=== PATIENT | female | born 1950 | race Caucasian/White ===

== ENCOUNTER 2019-11-17 18:14 | Inpatient (IN) ==
[2019-11-17] MEDS ORDERED: MORPHINE 4 MG/1 ML VIAL IV PRN (20:38)
[2019-11-17] MEDS ORDERED: NITROGLYCERIN SL 0.4 MG TABLET SL PRN (20:38)
[2019-11-17] MEDS ORDERED: hydrALAZINE 20 MG/1 ML VIAL IV PRN (20:40)
[2019-11-17 21:47] LABS: Hemoglobin 14.4 GM/DL (12.0-16.0); Immature Granulocytes % 0.2 %; Immature Granulocytes Absolute 0.02 #; Red Cell Distribution Width 16.2 % (9.3-17.3)
[2019-11-17 21:56] LABS: PT Patient Result 10.7 SECS (9.6-12.2); Partial Thromboplastin Time 28.5 SECS (20.8-36.0)
[2019-11-17 22:06] LABS: Basophils # 0.1 10*3/uL (0.0-0.2); Basophils % 0.7 % (0.0-0.8); Eosinophils # 0.2 10*3/uL (0.0-0.87); Eosinophils % 2.6 % (0.00-10.9); Hematocrit 47.2 VOL% (35.7-47.0); Lymphocytes # 2.3 10*3/uL (1.4-4.0); Lymphocytes % 27.7 % (21.3-54.2); Mean Corpuscular HGB Conc 30.5 GM/DL (32-36); Mean Corpuscular Volume 92.4 FL (87-102); Mean Platelet Volume 11.3 FL (9.6-12.0); Monocytes % 7.3 % (1.7-12.7); Neutrophils % 61.5 % (38.7-73.9); Platelet Count 311 T/CUMM (130-400); Red Blood Count 5.11 MC/CUMM (3.8-5.5); White Blood Count 8.4 T/CUMM (4-12)
[2019-11-17] MEDS ORDERED: FUROSEMIDE 40 MG/4 ML VIAL IV SCH (22:30)
[2019-11-17 22:45] LABS: Calcium 9.8 MG/DL (8.5-10.1); Osmolality,Calculated 282.8 MOS/KG (273-304)
[2019-11-17] MEDS ORDERED: NICOTINE 21 MG/24 HR PATCH TRANSDERM PRN (23:33)
[2019-11-17] MEDS ORDERED: ACETAMINOPHEN 325 MG TABLET PO PRN (23:33)
[2019-11-17] MEDS ORDERED: guaiFENesin/DM ER 600-30 MG TABLET PO PRN (23:33)
[2019-11-17] MEDS ORDERED: ONDANSETRON 4 MG/2 ML VIAL IV PRN (23:33)
[2019-11-17] MEDS ORDERED: ALBUTEROL 2.5 MG/3 ML NEB RESP TX PRN (23:33)
[2019-11-17] MEDS ORDERED: DEXTROSE 50% 25 GM/50 ML VIAL IV ONE (23:36)
[2019-11-17] MEDS ORDERED: GLUCAGON 1 MG VIAL IM PRN (23:37)
[2019-11-17] MEDS ORDERED: DEXTROSE 50% 25 GM/50 ML VIAL IV PRN (23:37)
[2019-11-18] MEDS: ATORVASTATIN 40 MG TABLET PO SCH ×2 (03:36→21:53)
[2019-11-18 05:25] LABS: Basophils # 0.1 10*3/uL (0.0-0.2); Basophils % 0.7 % (0.0-0.8); Eosinophils # 0.2 10*3/uL (0.0-0.87); Eosinophils % 2.9 % (0.00-10.9); Hematocrit 42.7 VOL% (35.7-47.0); Hemoglobin 13.2 GM/DL (12.0-16.0); Immature Granulocytes % 0.1 %; Immature Granulocytes Absolute 0.01 #; Lymphocytes # 2.1 10*3/uL (1.4-4.0); Lymphocytes % 28.1 % (21.3-54.2); Mean Corpuscular HGB Conc 30.9 GM/DL (32-36); Mean Corpuscular Volume 91.8 FL (87-102); Mean Platelet Volume 11.5 FL (9.6-12.0); Monocytes % 9.5 % (1.7-12.7); Neutrophils % 58.7 % (38.7-73.9); Platelet Count 280 T/CUMM (130-400); Red Blood Count 4.65 MC/CUMM (3.8-5.5); Red Cell Distribution Width 16.4 % (9.3-17.3); White Blood Count 7.6 T/CUMM (4-12)
[2019-11-18 05:54] LABS: Albumin 3.4 G/DL (3.4-5.0); Bilirubin,Total 1.1 MG/DL (0.2-1.0); Calcium 9.9 MG/DL (8.5-10.1)
[2019-11-18] MEDS ORDERED: PANTOPRAZOLE 40 MG TABLET PO SCH (09:00)
[2019-11-18] MEDS: DOCUSATE SODIUM 100 MG CAPSULE PO SCH ×2 (09:14→21:53)
[2019-11-18] MEDS: carvediloL 6.25 MG TABLET PO SCH ×2 (09:15→16:35)
[2019-11-18] MEDS: ASPIRIN EC 325 MG TABLET PO SCH (09:17)
[2019-11-18 09:57] LABS: Apearance,Urine CLEAR (Clear); Bacteria,Urine Occasional /HPF (Few); Bilirubin,Urine Negative (Negative); Blood, Urine Negative (Negative); Glucose,Urine (UA) Negative (Negative); Hyaline Casts,Urine 11 /LPF (0-3); Ketones,Urine Negative (Negative); Nitrite,Urine Negative (Negative); Protein,Urine Negative; RBC,Urine 2 /HPF (0-4); Renal Epithelial Cells,Urine Occasional /HPF (<1); Squamous Epithelial Cell,Urine Occasional /HPF (0-10); Urine Color Straw (Yellow); Urine Specific Gravity 1.005 (1.001-1.035); Urine Urobilinogen < 2.0 EU/DL (0.2-1.0); WBC,Urine 6 /HPF (0-6)
[2019-11-18 10:20] LABS: Troponin I 0.072 NG/ML (0.00-0.045)
[2019-11-18] MEDS: BISACODYL 5 MG TABLET PO SCH (12:37)
[2019-11-18] MEDS ORDERED: MAGNESIUM HYDROXIDE SUSP 30 ML UDCUP PO ONE (16:28)
[2019-11-18] MEDS: INSULIN REGULAR 100 UNIT/ML SUBCUT SCH ×2 (17:41→21:53)
[2019-11-18] MEDS: INSULIN NPH/REGULAR 70/30 100 UNIT/ML SUBCUT SCH (21:53)
[2019-11-18] MEDS: TOBRAMYCIN/DEXAMETHASONE 0.3%-0.1% OPH SUSP 2.5 ML BOTTLE RIGHT EYE SCH (21:53)
[2019-11-19 04:56] LABS: Basophils # 0.1 10*3/uL (0.0-0.2); Basophils % 0.8 % (0.0-0.8); Eosinophils # 0.3 10*3/uL (0.0-0.87); Eosinophils % 3.4 % (0.00-10.9); Hematocrit 41.3 VOL% (35.7-47.0); Hemoglobin 12.5 GM/DL (12.0-16.0); Immature Granulocytes % 0.3 %; Immature Granulocytes Absolute 0.02 #; Lymphocytes # 1.9 10*3/uL (1.4-4.0); Lymphocytes % 25.6 % (21.3-54.2); Mean Corpuscular HGB Conc 30.3 GM/DL (32-36); Mean Platelet Volume 11.5 FL (9.6-12.0); Monocytes % 11.1 % (1.7-12.7); Neutrophils % 58.8 % (38.7-73.9); Platelet Count 294 T/CUMM (130-400); Red Blood Count 4.44 MC/CUMM (3.8-5.5); Red Cell Distribution Width 15.9 % (9.3-17.3); White Blood Count 7.3 T/CUMM (4-12)
[2019-11-19 05:46] LABS: Calcium 9.4 MG/DL (8.5-10.1); Osmolality,Calculated 281.1 MOS/KG (273-304)
[2019-11-19 06:14] LABS: Risk Ratio 6.33; VLDL CHOLESTEROL 43.6 MG/DL
[2019-11-19 08:52] LABS: ABG Base Excess 6.2 MMOL/L (-2.5-2.5); ABG Oxygen Saturation 96.4 % (95-100); ABG PCO2 57.7 MM HG (35-48); ABG PH 7.372 (7.35-7.45); ABG PO2 80.3 MM HG (80-95); ABG TCO2 29.3 MMOL/L (23-27)
[2019-11-19] MEDS ORDERED: FUROSEMIDE 40 MG TABLET PO SCH (09:00)
[2019-11-19] MEDS: INSULIN REGULAR 100 UNIT/ML SUBCUT SCH ×4 (09:06→22:25)
[2019-11-19] MEDS: BISACODYL 5 MG TABLET PO SCH (09:09)
[2019-11-19] MEDS: PANTOPRAZOLE 40 MG TABLET PO SCH (09:10)
[2019-11-19] MEDS: EZETIMIBE 10 MG TABLET PO SCH (09:10)
[2019-11-19] MEDS: DOCUSATE SODIUM 100 MG CAPSULE PO SCH ×2 (09:10→22:25)
[2019-11-19] MEDS: ASPIRIN EC 325 MG TABLET PO SCH (09:10)
[2019-11-19] MEDS: allopurinoL 100 MG TABLET PO SCH (09:10)
[2019-11-19] MEDS: INSULIN NPH/REGULAR 70/30 100 UNIT/ML SUBCUT SCH ×2 (09:11→18:24)
[2019-11-19] MEDS: carvediloL 6.25 MG TABLET PO SCH ×2 (09:11→18:24)
[2019-11-19] MEDS: TOBRAMYCIN/DEXAMETHASONE 0.3%-0.1% OPH SUSP 2.5 ML BOTTLE RIGHT EYE SCH ×4 (09:12→22:25)
[2019-11-19] MEDS: ASPIRIN EC 81 MG TABLET PO SCH (09:16)
[2019-11-19] MEDS: cefTRIAXone 2,000 MG in SYRINGE 1 EACH IV SCH (15:37)
[2019-11-19] MEDS: SODIUM CHLORIDE 0.9% 1,000 ML IV SCH ×2 (15:37→22:28)
[2019-11-19] MEDS: BUDESONIDE 0.5 MG/2 ML NEB RESP TX SCH (19:29)
[2019-11-19] MEDS: ALBUTEROL/IPRATROPIUM 3 ML NEB RESP TX SCH (19:29)
[2019-11-19] MEDS: ATORVASTATIN 40 MG TABLET PO SCH (22:25)
[2019-11-19] MEDS: diphenhydrAMINE CAP 25 MG CAPSULE PO PRN (22:25)
[2019-11-20] MEDS: ALBUTEROL/IPRATROPIUM 3 ML NEB RESP TX SCH ×4 (01:40→20:22)
[2019-11-20 03:25] LABS: ABG Base Excess 4.9 MMOL/L (-2.5-2.5); ABG HCO3 28.8 MMOL/L (20-26); ABG Oxygen Saturation 98.4 % (95-100); ABG PCO2 62.6 MM HG (35-48); ABG TCO2 29.1 MMOL/L (23-27)
[2019-11-20 05:38] LABS: Basophils % 0.5 % (0.0-0.8); Eosinophils # 0.3 10*3/uL (0.0-0.87); Eosinophils % 4.2 % (0.00-10.9); Hematocrit 39.8 VOL% (35.7-47.0); Hemoglobin 12.2 GM/DL (12.0-16.0); Immature Granulocytes % 0.3 %; Immature Granulocytes Absolute 0.02 #; Lymphocytes # 1.7 10*3/uL (1.4-4.0); Lymphocytes % 26.8 % (21.3-54.2); Mean Corpuscular HGB Conc 30.7 GM/DL (32-36); Mean Corpuscular Volume 92.8 FL (87-102); Mean Platelet Volume 11.8 FL (9.6-12.0); Monocytes % 11.5 % (1.7-12.7); Neutrophils % 56.7 % (38.7-73.9); Platelet Count 238 T/CUMM (130-400); Red Blood Count 4.29 MC/CUMM (3.8-5.5); Red Cell Distribution Width 15.8 % (9.3-17.3); White Blood Count 6.4 T/CUMM (4-12)
[2019-11-20 05:50] LABS: Calcium 9.2 MG/DL (8.5-10.1); Osmolality,Calculated 279.2 MOS/KG (273-304)
[2019-11-20] MEDS ORDERED: MAGNESIUM HYDROXIDE SUSP 30 ML UDCUP PO PRN (07:25)
[2019-11-20] MEDS: BUDESONIDE 0.5 MG/2 ML NEB RESP TX SCH ×2 (07:30→20:22)
[2019-11-20] MEDS: SODIUM CHLORIDE 0.9% 1,000 ML IV SCH (07:48)
[2019-11-20] MEDS: INSULIN REGULAR 100 UNIT/ML SUBCUT SCH ×4 (08:13→21:28)
[2019-11-20] MEDS ORDERED: FUROSEMIDE 40 MG TABLET PO SCH (09:00)
[2019-11-20] MEDS: EZETIMIBE 10 MG TABLET PO SCH (09:14)
[2019-11-20] MEDS: BISACODYL 5 MG TABLET PO SCH (09:14)
[2019-11-20] MEDS: allopurinoL 100 MG TABLET PO SCH (09:15)
[2019-11-20] MEDS: ASPIRIN EC 325 MG TABLET PO SCH (09:15)
[2019-11-20] MEDS: carvediloL 6.25 MG TABLET PO SCH ×2 (09:15→16:20)
[2019-11-20] MEDS: PANTOPRAZOLE 40 MG TABLET PO SCH (09:15)
[2019-11-20] MEDS: INSULIN NPH/REGULAR 70/30 100 UNIT/ML SUBCUT SCH ×2 (09:15→16:20)
[2019-11-20] MEDS: FUROSEMIDE 40 MG TABLET PO SCH (09:15)
[2019-11-20] MEDS: DOCUSATE SODIUM 100 MG CAPSULE PO SCH ×2 (09:15→21:28)
[2019-11-20] MEDS: ASPIRIN EC 81 MG TABLET PO SCH (09:16)
[2019-11-20] MEDS: TOBRAMYCIN/DEXAMETHASONE 0.3%-0.1% OPH SUSP 2.5 ML BOTTLE RIGHT EYE SCH ×4 (09:16→21:30)
[2019-11-20] MEDS: cefTRIAXone 2,000 MG in SYRINGE 1 EACH IV SCH (14:07)
[2019-11-20] MEDS: diphenhydrAMINE CAP 25 MG CAPSULE PO PRN (21:28)
[2019-11-20] MEDS: ATORVASTATIN 40 MG TABLET PO SCH (21:28)
[2019-11-21] MEDS: ALBUTEROL/IPRATROPIUM 3 ML NEB RESP TX SCH ×4 (00:37→19:50)
[2019-11-21 05:30] LABS: Basophils % 0.6 % (0.0-0.8); Eosinophils # 0.3 10*3/uL (0.0-0.87); Eosinophils % 3.8 % (0.00-10.9); Hematocrit 41.5 VOL% (35.7-47.0); Hemoglobin 12.5 GM/DL (12.0-16.0); Immature Granulocytes % 0.3 %; Immature Granulocytes Absolute 0.02 #; Lymphocytes # 1.7 10*3/uL (1.4-4.0); Mean Corpuscular HGB Conc 30.1 GM/DL (32-36); Mean Corpuscular Volume 94.1 FL (87-102); Mean Platelet Volume 11.3 FL (9.6-12.0); Monocytes % 9.5 % (1.7-12.7); Neutrophils % 60.8 % (38.7-73.9); Platelet Count 237 T/CUMM (130-400); Red Blood Count 4.41 MC/CUMM (3.8-5.5); Red Cell Distribution Width 15.9 % (9.3-17.3); White Blood Count 6.8 T/CUMM (4-12)
[2019-11-21 05:50] LABS: Calcium 9.1 MG/DL (8.5-10.1)
[2019-11-21] MEDS: BUDESONIDE 0.5 MG/2 ML NEB RESP TX SCH ×2 (07:17→19:50)
[2019-11-21] MEDS: INSULIN REGULAR 100 UNIT/ML SUBCUT SCH ×4 (08:46→21:36)
[2019-11-21] MEDS ORDERED: FUROSEMIDE 40 MG TABLET PO SCH (09:03)
[2019-11-21] MEDS: ASPIRIN EC 325 MG TABLET PO SCH (09:33)
[2019-11-21] MEDS: DOCUSATE SODIUM 100 MG CAPSULE PO SCH ×2 (09:33→21:37)
[2019-11-21] MEDS: INSULIN NPH/REGULAR 70/30 100 UNIT/ML SUBCUT SCH ×2 (09:33→17:18)
[2019-11-21] MEDS: carvediloL 6.25 MG TABLET PO SCH ×2 (09:34→17:17)
[2019-11-21] MEDS: ASPIRIN EC 81 MG TABLET PO SCH (09:34)
[2019-11-21] MEDS: allopurinoL 100 MG TABLET PO SCH (09:34)
[2019-11-21] MEDS: BISACODYL 5 MG TABLET PO SCH (09:34)
[2019-11-21] MEDS: FUROSEMIDE 40 MG TABLET PO SCH (09:35)
[2019-11-21] MEDS: EZETIMIBE 10 MG TABLET PO SCH (09:35)
[2019-11-21] MEDS: PANTOPRAZOLE 40 MG TABLET PO SCH (09:35)
[2019-11-21] MEDS: TOBRAMYCIN/DEXAMETHASONE 0.3%-0.1% OPH SUSP 2.5 ML BOTTLE RIGHT EYE SCH ×4 (09:36→21:37)
[2019-11-21] MEDS: SKIN HEALING OINT (AQUAPHOR) 50 GM TUBE TOP SCH (12:26)
[2019-11-21] MEDS: cefTRIAXone 2,000 MG in SYRINGE 1 EACH IV SCH (17:02)
[2019-11-21] MEDS: diphenhydrAMINE CAP 25 MG CAPSULE PO PRN (21:37)
[2019-11-21] MEDS: ATORVASTATIN 40 MG TABLET PO SCH (21:37)
[2019-11-22] MEDS: ALBUTEROL/IPRATROPIUM 3 ML NEB RESP TX SCH ×3 (00:25→13:32)
[2019-11-22 05:08] LABS: Basophils % 0.7 % (0.0-0.8); Eosinophils # 0.3 10*3/uL (0.0-0.87); Eosinophils % 4.7 % (0.00-10.9); Hematocrit 41.3 VOL% (35.7-47.0); Hemoglobin 12.8 GM/DL (12.0-16.0); Immature Granulocytes % 0.2 %; Immature Granulocytes Absolute 0.01 #; Lymphocytes # 1.7 10*3/uL (1.4-4.0); Lymphocytes % 27.6 % (21.3-54.2); Mean Platelet Volume 11.8 FL (9.6-12.0); Monocytes % 10.9 % (1.7-12.7); Neutrophils % 55.9 % (38.7-73.9); Platelet Count 223 T/CUMM (130-400); Red Blood Count 4.49 MC/CUMM (3.8-5.5); Red Cell Distribution Width 15.9 % (9.3-17.3); White Blood Count 6.1 T/CUMM (4-12)
[2019-11-22 05:50] LABS: Calcium 9.6 MG/DL (8.5-10.1); Osmolality,Calculated 281.8 MOS/KG (273-304)
[2019-11-22] MEDS: BUDESONIDE 0.5 MG/2 ML NEB RESP TX SCH (07:32)
[2019-11-22] MEDS: INSULIN REGULAR 100 UNIT/ML SUBCUT SCH ×2 (08:33→11:45)
[2019-11-22] MEDS: INSULIN NPH/REGULAR 70/30 100 UNIT/ML SUBCUT SCH (08:46)
[2019-11-22] MEDS: allopurinoL 100 MG TABLET PO SCH (08:47)
[2019-11-22] MEDS: carvediloL 6.25 MG TABLET PO SCH (08:47)
[2019-11-22] MEDS: EZETIMIBE 10 MG TABLET PO SCH (08:47)
[2019-11-22] MEDS: ASPIRIN EC 81 MG TABLET PO SCH (08:47)
[2019-11-22] MEDS: BISACODYL 5 MG TABLET PO SCH (08:47)
[2019-11-22] MEDS: PANTOPRAZOLE 40 MG TABLET PO SCH (08:48)
[2019-11-22] MEDS: DOCUSATE SODIUM 100 MG CAPSULE PO SCH (08:48)
[2019-11-22] MEDS: TOBRAMYCIN/DEXAMETHASONE 0.3%-0.1% OPH SUSP 2.5 ML BOTTLE RIGHT EYE SCH (08:55)
[2019-11-22] MEDS ORDERED: LEVOFLOXACIN 250 MG TABLET PO SCH (09:00)
[2019-11-22] MEDS: SKIN HEALING OINT (AQUAPHOR) 50 GM TUBE TOP SCH (11:52)
[2019-11-22 11:57] VITALS: BP 143/65
== END 2019-11-22 14:11 | disposition home health service (06) | DRG 392 ==
LOC: N.TELES → OBSVTOIN 20:19 → SUATTDRO 20:19
PROVIDERS: ADMIT Internal Medicine; ATTEND Family Medicine